=== PATIENT | female | born 2000 | race Caucasian/White ===

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

== ENCOUNTER 2018-11-21 13:14 | Emergency (ER) | payer OTHER, MEDICAID ==
[2018-11-21 14:20] LABS: Urine Appearance Cloudy; Urine Bacteria Absent (Absent); Urine Bilirubin Negative (Negative); Urine Blood Negative (Negative); Urine Color Yellow; Urine Glucose Negative (Negative); Urine Ketones Negative (Negative); Urine Nitrite Negative (Negative); Urine Protein Negative (Negative); Urine Red Blood Cell Trace(0-2/hpf) (Absent); Urine Specific Gravity 1.005 (1.010-1.030); Urine Squamous Epithelial Cell Present (Absent); Urine Urobilinogen Negative (Negative); Urine White Blood Cell 3+(>20/hpf) (Absent)
[2018-11-21] MEDS ORDERED: NS 0.9% 1000 ML** 1,000 ML IV ONE (15:11)
[2018-11-21 15:28] LABS: ABS Eosinophils 0.1 10^3/ul (0-0.6); ABS Lymphocytes 1.4 10^3/ul (1.0-4.8); ABS Monocytes 0.6 10^3/ul (0-0.8); ABS Neutrophils 9.5 10^3/ul (1.5-7.7); Hematocrit 31 % (35-47); Hemoglobin 10.9 g/dL (12.0-16.0); Lymphocyte % 11.8 %; Mean Corpuscular HGB Conc 36 g/dL (31-36); Mean Corpuscular Hemoglobin 33 pg (27-31); Mean Corpuscular Volume 93 fL (80-97); Platelet Count 139 10^3/uL (150-450); Red Blood Count 3.27 10^6 /uL (3.70-4.87); Red Cell Distribution Width 13 % (10-15); White Blood Count 11.6 10^3/uL (3.5-10.8)
[2018-11-21 15:47] LABS: Albumin 3.6 g/dL (3.2-5.2); Albumin/Globulin Ratio 1.6 (1-3); BUN/Creatinine Ratio 19.6 (8-20); C Reactive Protein 1.25 mg/L (<8.01); Calcium 8.5 mg/dL (8.6-10.3); EGFR African American 209.6 (>60); EGFR Non-African American 173.2 (>60); Globulin 2.3 g/dL (2-4); Potassium 3.7 mmol/L (3.5-5.0); Total Bilirubin 0.3 mg/dL (0.2-1.0); Total Protein 5.9 g/dL (6.4-8.9)
--- NOTE | 2018-11-21 16:10 | ED ---
GI/ HPI - HPI Summary HPI Summary: Patient is a 18-year-old 24 weeks and 6 days female presenting to the ED with concern for an appendicitis. She states she has had bilateral lower quadrant pain with worsening pain to the right lower side 3 days. Her chief complaint is a feeling of not emptying her bladder all the way and pain with voiding. Denies any burning sensation. Denies any flank pain bilaterally. She was seen by her PCP yesterday, and urine was negative. She returns today for continuing symptoms. Her pain is currently rated a 2/10. Not worse or better with positioning, not worse or better with ambulation or with pressure palpation to the area. She denies any fevers, sweats, chills. She denies any nausea, vomiting, diarrhea or constipation. Her has been normal so far and she denies any vaginal bleeding or discharge. She has close follow-up with an [facility]. She endorses a decreased appetite, however she ate a cheeseburger prior to arrival. She states she has not been drinking enough water and has been drinking lemonade over the past 3 days. - History of Current Complaint Chief Complaint: EDFlankPain Time Seen by Provider: 11/21/18 15:02 Stated Complaint: ABD PAIN 24 WEEKS PREG Hx Obtained From: Patient Timing: Constant Severity: Moderate Current Severity: Moderate Pain Intensity: 6 Location of Pain: Other - Bilateral lower quadrant 3 days Pain Characteristics: Pressure Associated Signs and Symptoms: Positive: UTI Symptoms Aggravating Factor(s): Nothing Alleviating Factor(s): Nothing - Allergy/Home Medications Allergies/Adverse Reactions: Allergies Allergy/AdvReac Type Severity Reaction Status Date / Time azithromycin AdvReac Intermediate Edema Verified 11/21/18 13:20 latex AdvReac Mild Blisters Verified 11/21/18 13:20 Home Medications: Home Medications Acetaminophen TAB* [Tylenol TAB*] 650 mg PO Q6H PRN 11/21/18 [History Confirmed 11/21/18] 21/Iron Fu/Folic Acid [ Complete] 1 tab PO DAILY 11/21/18 [ History Confirmed 11/21/18] PMH/Surg Hx/FS Hx/Imm Hx Previously Healthy: Yes Endocrine/Hematology History: Denies: Hx Diabetes, Hx Thyroid Disease Cardiovascular History: Denies: Hx Hypertension Respiratory History: Denies: Hx Asthma, Hx Chronic Obstructive Pulmonary Disease (COPD) GI History: Denies: Hx Ulcer History: Denies: Hx Dialysis, Hx Renal Disease - Immunization History Hx Pertussis Vaccination: No Immunizations Up to Date: Yes Infectious Disease History: No Infectious Disease History: Denies: Hx Clostridium Difficile, Hx Hepatitis, Hx Human Immunodeficiency Virus (HIV), Hx of Known/Suspected MRSA, Hx Shingles, Hx Tuberculosis, Hx Known/ Suspected VRE, Hx Known/Suspected VRSA, History Other Infectious Disease, Traveled Outside the [place] in Last 30 Days - Family History Known Family History: Positive: Hypertension, Diabetes, Other - Schizophrenia - Social History Occupation: Employed Part-time Lives: With Family Alcohol Use: None Hx Substance Use: No Substance Use Type: Reports: None Hx Tobacco Use: Yes Smoking Status (MU): Heavy Every Day Tobacco Smoker Type: Cigarettes Amount Used/How Often: 1/2 PPD Length of Time of Smoking/Using Tobacco: 2+ YEARS Have You Smoked in the Last Year: Yes Review of Systems Constitutional: Negative Negative: Fever, Chills, Fatigue, Skin Diaphoresis Negative: Palpitations, Chest Pain Negative: Shortness Of Breath, Cough Positive: Abdominal Pain. Negative: Vomiting, Nausea Positive: dysuria, pain - feeling she is unable to empty her bladder completely. Negative: discharge, frequency, flank pain, hematuria, incontinence Musculoskeletal: Negative Skin: Negative Neurological: Negative All Other Systems Reviewed And Are Negative: Yes Physical Exam Triage Information Reviewed: Yes Vital Signs On Initial Exam: Initial Vitals Temp Pulse Resp BP Pulse Ox 98.2 F 98 16 162/100 99 11/21/18 13:16 11/21/18 13:16 11/21/18 13:16 11/21/18 13:16 11/21/18 13:16 Vital Signs Reviewed: Yes Appearance: Positive: Well-Appearing, Well-Nourished Skin: Positive: Warm, Skin Color Reflects Adequate Perfusion Head/Face: Positive: Normal Head/Face Inspection Eyes: Positive: EOMI, Conjunctiva Clear Neck: Positive: Supple, No Lymphadenopathy Respiratory/Lung Sounds: Positive: Clear to Auscultation, Breath Sounds Present Cardiovascular: Positive: Pulses are Symmetrical in both Upper and Lower Extremities. Negative: Leg Edema Left, Leg Edema Right Abdomen Description: Positive: Nontender, Soft. Negative: CVA Tenderness (R), CVA Tenderness (L), Distended, Guarding Musculoskeletal: Positive: Normal, Strength/ROM Intact Neurological: Positive: Sensory/Motor Intact, Alert, Oriented to Person Place, Time, Pronator Drift Present Psychiatric: Positive: Affect/Mood Appropriate AVPU Assessment: Alert Diagnostics - Vital Signs Vital Signs Temp Pulse Resp BP Pulse Ox 11/21/18 13:16 98.2 F 98 16 162/100 99 - Laboratory Lab Results: Lab Results 11/21/18 11/21/18 11/21/18 Range/Units 14:08 15:09 15:09 WBC 11.6 H (3.5-10.8) 10^3/uL RBC 3.27 L (3.70-4.87) 10^6 /uL Hgb 10.9 L (12.0-16.0) g/dL Hct 31 L (35-47) % MCV 93 (80-97) fL MCH 33 H (27-31) pg MCHC 36 (31-36) g/dL RDW 13 (10-15) % Plt Count 139 L (150-450) 10^3/uL MPV 8.0 (7.4-10.4) fL Neut % (Auto) 81.7 % Lymph % (Auto) 11.8 % Sweet [place] % (Auto) 5.2 % Eos % (Auto) 1.0 % Baso % (Auto) 0.3 % Absolute Neuts (auto) 9.5 H (1.5-7.7) 10^3/ul Absolute Lymphs (auto) 1.4 (1.0-4.8) 10^3/ul Absolute Monos (auto) 0.6 (0-0.8) 10^3/ul Absolute Eos (auto) 0.1 (0-0.6) 10^3/ul Absolute Basos (auto) 0.0 (0-0.2) 10^3/ul Absolute Nucleated RBC 0.0 10^3/ul Nucleated RBC % 0.0 Sodium 135 (135-145) mmol/L Potassium 3.7 (3.5-5.0) mmol/L Chloride 108 (101-111) mmol/L Carbon Dioxide 21 L (22-32) mmol/L Anion Gap 6 (2-11) mmol/L BUN 9 (6-24) mg/dL Creatinine 0.46 L (0.51-0.95) mg/dL Est GFR ( Amer) 209.6 (>60) Est GFR (Non-Af Amer) 173.2 (>60) BUN/Creatinine Ratio 19.6 (8-20) Glucose 75 (70-100) mg/dL Calcium 8.5 L (8.6-10.3) mg/dL Total Bilirubin 0.30 (0.2-1.0) mg/dL AST 10 L (13-39) U/L ALT 11 (7-52) U/L Alkaline Phosphatase 60 (34-104) U/L C-Reactive Protein 1.25 (<8.01) mg/L Total Protein 5.9 L (6.4-8.9) g/dL Albumin 3.6 (3.2-5.2) g/dL Globulin 2.3 (2-4) g/dL Albumin/Globulin Ratio 1.6 (1-3) Urine Color Yellow Urine Appearance Cloudy Urine pH 6.0 (5-9) Ur Specific Bath 1.005 L (1.010-1.030) Urine Protein Negative (Negative) Urine Ketones Negative (Negative) Urine Blood Negative (Negative) Urine Nitrate Negative (Negative) Urine Bilirubin Negative (Negative) Urine Urobilinogen Negative (Negative) Ur Leukocyte Esterase 3+ A (Negative) Urine WBC (Auto) 3+(>20/hpf) A (Absent) Urine RBC (Auto) Trace(0-2/hpf) (Absent) Ur Squamous Epith Cells Present A (Absent) Urine Bacteria Absent (Absent) Urine Glucose Negative (Negative) Result Diagrams: 11/21/18 15:09 11/21/18 15:09 Lab Statement: Any lab studies that have been ordered have been reviewed, and results considered in the medical decision making process. GIGU Course/Dx - Course Course Of Treatment: On arrival into the ED, the patient appears well and nontoxic. Vital signs are stable except for a slightly elevated blood pressure. Patient is afebrile. Labs obtained which showed 11,000 white count, however a negative CRP. On physical examination, lungs CTA, RRR, no LAD bilaterally, abdomen consistent with a 25-28 week and no pain to palpation of the bilateral lower quadrants. UA obtained which shows 3+ leukocytes and 3+ WBCs. Patient continues to endorse not feeling she is emptying her bladder well. During her ED stay, she was able to give us a large sample of urine despite feeling she is unable to empty the bladder. She does endorse pain with urination, but denies any flank pain bilaterally. Due to the negative CRP and no pain on palpation and afebrile, patient will be discharged home with UTI. At this point I am not concerned for an appendicitis, however I have given strict return precautions for the patient as I am unable to conclude this definitively without an ultrasound or a CT follow-up. I discussed with the patient she will need close follow-up with her [facility] [employer] [facility]/PCP for tomorrow and she will return to the ED if she has any worsening or changing symptoms, specifically fevers, worsening pain, nausea or vomiting. She denies any other concerns and voices no concerns at this time. Keflex 500 mg twice a day 7 days given for UTI symptoms. - Diagnoses Differential Diagnoses - Female: Other - UTI, renal stones, , appendicitis Provider Diagnoses: UTI (urinary tract infection) Discharge - Sign-Out/Discharge Documenting (check all that apply): Patient Departure Patient Received Moderate/Deep Sedation with Procedure: No - Discharge Plan Condition: Stable Disposition: HOME Patient Education Materials: Urinary Tract Infection in (ED) Referrals: Session Colt TODD [Primary Care Provider] - Additional Instructions: Keflex twice daily x 7 days Drink plenty of fluids Please follow up with OBGYN tomorrow If you develop worsening right lower quadrant pain, nausea, vomiting or other symptoms - return to the ED immediately - Billing Disposition and Condition Condition: STABLE Disposition: Home
[2018-11-21 16:33] VITALS: BP 131/66
== END 2018-11-21 16:32 | disposition home or self-care (01) ==
LOC: ED 13:14
DX: O23.42 Unspecified infection of urinary tract in pregnancy, second trimester (principal); Z3A.24 24 weeks gestation of pregnancy; Z88.1 Allergy status to other antibiotic agents; Z91.040 Latex allergy status; F17.210 Nicotine dependence, cigarettes, uncomplicated
CPT/HCPCS: 36415; 80053; 81003; 81015; 85025; 86140; 87086; 96360; 99283

== ENCOUNTER 2019-03-05 16:59 | Inpatient (IN) | payer OTHER, MEDICAID ==
[2019-03-05] MEDS ORDERED: Buffered Lidocaine 1% SYRIN* 1 ML/SYRINGE INTRADERM ONE (17:38)
[2019-03-05] MEDS ORDERED: Lactated Ringers 1000 ML Bag* 1,000 ML IV ONE (17:38)
[2019-03-05] MEDS ORDERED: Lactated Ringers 1000 ML Bag* 1,000 ML IV SCH (18:00)
[2019-03-05 19:03] LABS: Hematocrit 36 % (35-47); Hemoglobin 12.4 g/dL (12.0-16.0); Mean Corpuscular HGB Conc 35 g/dL (31-36); Mean Corpuscular Hemoglobin 33 pg (27-31); Mean Corpuscular Volume 94 fL (80-97); Red Blood Count 3.81 10^6 /uL (3.70-4.87); Red Cell Distribution Width 13 % (10-15); White Blood Count 22.2 10^3/uL (3.5-10.8)
[2019-03-05 19:04] LABS: ABS Basophils 0.1 10^3/ul (0-0.2); ABS Eosinophils 0.2 10^3/ul (0-0.6); ABS Lymphocytes 2.1 10^3/ul (1.0-4.8); Lymphocyte % 9.5 %; Mean Platelet Volume 9.3 fL (7.4-10.4); Platelet Count 193 10^3/uL (150-450)
--- NOTE | 2019-03-05 19:04 | HP ---
General Information - Reason for Visit Pt reports ctx overnight and throughout the day, irregular. +FM, -LOF, -VB - General Information Maternal Age: 18 Grav: 2 Para: 0 SAB: 0 IEA: 1 Estimated Due Date: 03/08/19 Determined By: LMP Gestational Age in Weeks/Days: 39w 4d Maternal Blood Type and Rh: O Negative - Results this Serology/RPR Result: Non-Reactive Rubella Result: Immune HBsAg Result: Negative HIV Result: Negative GBS Culture Result: Negative Past Medical History Pertinent Past Medical History: See Records - depression, anxiety, back pain, benign breast cysts Pertinent Past Surgical History: None Pertinent Family History: See Records - sisters: hishimoto's psych; M : rheum arthritis, HTN; MGM: osteoarthritis, HTN; MGF: lung CA; m uncle: DM and club feet; F: schizophrenia, HTN; PGM: DM; PGF: CVD, thyroid - Antepartal Records Antepartal Records: Reviewed, Complicated by: - tobacco use, MSAFP: increased risk of downsyndrome- NIPT: WNL, + trich in Review of Systems Constitutional: Uncomfortable CV Complaint: No Respiratory: Shortness of Breath: No Gastrointestinal: No Nausea/Vomiting, Normal Bowel Movement Genitourinary: No Dysuria, No Bleeding, No Leaking Fluid Musculoskeletal: No Epigastric Pain, Contractions Neurological: No Headache, No Visual Changes Movement: Normal Exam Allergies/Adverse Reactions: Allergies azithromycin Adverse Reaction (Intermediate, Verified 11/21/18 13:20) Edema latex Adverse Reaction (Mild, Verified 11/21/18 13:20) Blisters T:98.7, P:111, R:20, BP: 151/81, repeat 134/75, O2:99% - Measurements Height: 5 ft 5 in Weight: 174 lb Weight in lbs: 174.184169 Body Mass Index (BMI): 28.9 Pre- Weight: 138 lb Weight Gained This : 36 lbs and 0 ozs - Exam Breast: Breast Exam Deferred CVA: No CVA Tenderness Extremities: No Edema Heart: Normal Rhythm/Heart Sounds HEENT: No Significant Findings Lungs: Clear Bilaterally Rectal: Rectal Exam Deferred Reflexes: DTR 2+ Thyroid: No Thyromegaly - Abdominal Exam Abdomen Exam: Fundal Height Consistent with Dates - Ultrasound/Biophysical Profile Ultrasound Status: Not Done Targeted Exam Findings Estimated Weight: 7lbs 7oz Cervical Exam: 6cm Effacement: 90% Station: -1 Presenting Part: Vertex Membrane Status: AROM Amniotic Fluid Evaluation: Clear Bleeding/Discharge: Bloody Show EFM Findings - External Monitor Findings Baseline Heart Rate: 125 External Monitor Findings: Accelerations Present, No Pattern of Variable or Late Decelerations, Variability Moderate, Baseline Stable Contractions: Regular, Mild, Moderate, 45-90 Seconds Contraction Frequency: 5-10 Assessment/Plan - Assessment 18 y.o. , 39w4d EGA, Cat I NST, early labor, GBS neg, AROM clear - Obstetrical Risk Factors Obstetrical Risk Factors: Tobacco Use - Plan Plan: Admit - Anticipate Vaginal Delivery - Date/Time of Admission Date of Admission: 03/05/19 Time of Admission: 19:00
[2019-03-05 21:16] LABS: Urine Benzodiazepine Screen None Detected (None Detect); Urine Opiates Screen None Detected (None Detect)
[2019-03-06] MEDS ORDERED: OBEPIDURAL* 250 ML EPIDURAL ONE (02:59)
[2019-03-06] MEDS ORDERED: Lactated Ringers 1000 ML Bag* 500 ML IV PRN (03:53)
[2019-03-06] MEDS ORDERED: Sodium Citrate/Citric Acid* 15 ML UDC PO PRN (03:53)
[2019-03-06] MEDS ORDERED: Phenylephrine 40 MCG/ML SYRINGE IV PUSH PRN ×2 (03:53)
[2019-03-06] MEDS ORDERED: Famotidine TAB* 20 MG PO PRN (03:53)
[2019-03-06] MEDS ORDERED: Lactated Ringers 1000 ML Bag* 1,000 ML IV ONE (03:53)
[2019-03-06] MEDS ORDERED: Lactated Ringers 1000 ML Bag* 1,000 ML IV SCH ×2 (04:00→10:00)
[2019-03-06] MEDS ORDERED: OBEPIDURAL* 250 ML EPIDURAL SCH (04:00)
--- NOTE | 2019-03-06 05:30 | PN ---
Progress Note - Progress Note Date of Service: 03/06/19 SOAP: Subjective: Pt comfortable after after epidural but feeling emotional regarding family conflict and conflict with FOB. FOB left the room at this time. Pt reports pressure with ctx. Pt has not slept yet. Objective: BP: 114/74, T:99.4 FHR:145bpm, + accels, occasional variable or earlies, moderate variability. Ctx q 2-6min cervix:7-8/90/0 Assessment: 18 y.o. , 39w 5d EGA, inadequate ctx, Cat I NST Plan: 1) Reviewed options and risks and pt agrees to start pitocin low dose at 2 2) Encouraged pt to rest and avoid conflicts with family 3) Con't position changes. 4) reevaluate in 2 hrs or sooner PRN
[2019-03-06] MEDS ORDERED: Oxytocin in LR* 20 UNITS/1,000 ML BAG IVPB SCH ×2 (06:00→10:00)
[2019-03-06] MEDS ORDERED: Dibucaine 1% 28.35 GM TUBE PR PRN (09:38)
[2019-03-06] MEDS ORDERED: Acetaminophen TAB* 325 MG PO PRN (09:38)
[2019-03-06] MEDS ORDERED: Witch Hazel PAD* JAR TOPICAL PRN (09:38)
[2019-03-06] MEDS ORDERED: Glycerin ADULT SUPP PR PRN (09:38)
--- NOTE | 2019-03-06 09:38 | PROCNOTE ---
[facility] OB: Delivery Note - Delivery A Date of : 03/06/19 Time of : 09:25 Sex: Female Score 1 Minute: 9 Score 5 Minutes: 9 Gestational Age in Weeks and Days at Delivery: 39 Weeks and 5 Days Delivery Method: Spontaneous Vaginal Labor: Spontaneous Amniotic Fluid: Clear Estimated Blood Loss: 200 Anesthesia/Analgesia: CEI for Labor, Nitrous-Labor Delivered By: Corrie Dubon - Nursery Level of Nursery: Regular/Bedside - Perineum Perineal Injury: Abrasion Only - Not Repaired Perineal Repair: None
[2019-03-06] MEDS ORDERED: Simethicone TAB* 80 MG TAB.CHEW PO SCH (12:30)
[2019-03-06] MEDS: Docusate CAP* 100 MG PO SCH ×2 (13:49→20:03)
[2019-03-06] MEDS: Ibuprofen TAB* 600 MG PO PRN ×2 (13:49→20:03)
[2019-03-06] MEDS: Nicotine* 4MG (FRUIT FLAVOR) GUM PO PRN (20:07)
[2019-03-07] MEDS: Ibuprofen TAB* 600 MG PO PRN ×3 (05:23→21:26)
[2019-03-07 06:00] LABS: ABS Basophils 0.1 10^3/ul (0-0.2); ABS Eosinophils 0.2 10^3/ul (0-0.6); ABS Lymphocytes 2.3 10^3/ul (1.0-4.8); ABS Monocytes 0.9 10^3/ul (0-0.8); ABS Neutrophils 13.6 10^3/ul (1.5-7.7); Hematocrit 33 % (35-47); Hemoglobin 11.2 g/dL (12.0-16.0); Lymphocyte % 13.5 %; Mean Corpuscular HGB Conc 35 g/dL (31-36); Mean Corpuscular Hemoglobin 32 pg (27-31); Mean Corpuscular Volume 94 fL (80-97); Mean Platelet Volume 7.9 fL (7.4-10.4); Nucleated Red Blood Cells % 0.1; Platelet Count 165 10^3/uL (150-450); Red Blood Count 3.47 10^6 /uL (3.70-4.87); Red Cell Distribution Width 13 % (10-15); White Blood Count 16.9 10^3/uL (3.5-10.8)
[2019-03-07] MEDS: Docusate CAP* 100 MG PO SCH ×3 (08:05→19:52)
[2019-03-07] MEDS ORDERED: Ferrous Gluconate TAB* 324 MG TAB PO SCH (09:00)
[2019-03-07] MEDS ORDERED: RHO D Immune Globulin (HUMAN)* 300 MCG = 1,500 I.U. INJ IM ONE (16:56)
[2019-03-07] MEDS: Nicotine* 4MG (FRUIT FLAVOR) GUM PO PRN (19:52)
[2019-03-08] MEDS: Ibuprofen TAB* 600 MG PO PRN (08:20)
[2019-03-08] MEDS: Nicotine* 4MG (FRUIT FLAVOR) GUM PO PRN (08:20)
[2019-03-08] MEDS: Docusate CAP* 100 MG PO SCH (08:20)
[2019-03-08 08:28] VITALS: BP 139/86
--- NOTE | 2019-03-08 08:33 | PTEDU ---
Patient Name: TU ARAUZ TU ARAUZ selected video: Never Ever Shake a Baby to view on 03/08/2019 at 8:30:36 [place] [id number]
--- NOTE | 2019-03-08 08:44 | PTEDU ---
Patient Name: TU ARAUZ TU ARAUZ selected video: BBOB: Nurturing Your Gorgeous &Growing Baby by to view on [facility]2019 [facility] 8[facility]42:[email or web address]
--- NOTE | 2019-03-08 09:03 | PTEDU ---
Patient Name: TU ARAUZ TU ARAUZ selected video: BBOB: Nurturing Your Gorgeous &Growing Baby by to view on 03[facility]08/2019 at 9:01:18 [email or web address]
--- NOTE | 2019-03-08 09:33 | PTEDU ---
Patient Name: TU ARAUZ TU ARAUZ selected video: BBOB: Bonding Through Infant Massage to view on 03/08/2019 at 9:31:53 AM from [email or web address]
== END 2019-03-08 13:40 | disposition home or self-care (01) | DRG 807 ==
LOC: MCHOBOUT 16:59 → MCHOB 17:39
PROVIDERS: ADMIT Midwife; ATTEND Midwife
PROC: 10E0XZZ Delivery of Products of Conception, External Approach (ICD-10-PCS; principal; 2019-03-06)
PROC: 10907ZC Drainage of Amniotic Fluid, Therapeutic from Products of Conception, Via Natural or Artificial Opening (ICD-10-PCS; 2019-03-06)
DX: O99.344 Other mental disorders complicating childbirth (principal); Z37.0 Single live birth; F41.8 Other specified anxiety disorders; O99.334 Smoking (tobacco) complicating childbirth; O70.0 First degree perineal laceration during delivery; Z3A.39 39 weeks gestation of pregnancy
CPT/HCPCS: 36415; 80307; 85025; 85461; 86850; 86900; 86901; A9270-GY; J2790